=== PATIENT | female | born 1960 | race Caucasian/White ===

== ENCOUNTER 2017-04-14 12:46 | Inpatient (IN) | payer OTHER ==
[~2017-04-14] VITALS: Ht 167.6 cm; Wt 84.2 kg
[~2017-04-14 12:46] MED LIST: BUTA1CAP57 PO; CARI250T PO; DICY20TA29 PO; ELET40TA PO; LANS30CA60 PO; METF850T2 PO; SIMV40TA PO
[2017-04-14] MEDS ORDERED: MECLIZINE CHEWABLE 25 MG TAB ONE ×2 (13:17→19:29)
[2017-04-14 13:29] LABS: BASOPHILS # (AUTO) 0.01 x10^3/uL (0-0.1); BASOPHILS % (AUTO) 0 % (0-1); EOSINOPHILS % (AUTO) 1 % (1-7); LYMPHOCYTES # (AUTO) 1.04 x10^3/uL (1-3.4); LYMPHOCYTES % (AUTO) 7 % (22-44); MD NO; MEAN CORPUSCULAR HEMOGLOBIN 29.5 pg (27.0-34.8); MEAN CORPUSCULAR HGB CONC 33.3 g/dL (32.4-35.8); MEAN CORPUSCULAR VOLUME 88.6 fL (80-100); MEAN PLATELET VOLUME 7.7 fL (7.4-10.4); MONOCYTES # (AUTO) 0.86 x10^3/uL (0.2-0.8); MONOCYTES % (AUTO) 6 % (2-9); NEUTROPHILS # (AUTO) 13.15 x10^3/uL (1.8-6.8); NEUTROPHILS % (AUTO) 87 % (42-75); PLATELET COUNT 319 x10^3/uL (130-400); RED BLOOD COUNT 4.96 x10^6/uL (3.82-5.3); RED CELL DISTRIBUTION WIDTH 13.3 % (9.6-15.2)
[2017-04-14] MEDS ORDERED: MECLIZINE CHEWABLE 25 MG TAB PO ONE (13:30)
[2017-04-14 13:38] LABS: ALBUMIN 4.1 g/dL (3.4-5.0); ANION GAP 7 mmol/L (5-15); CALCIUM 9.1 mg/dL (8.5-10.1); CHLORIDE 106 mmol/L (98-107); CREATININE 0.98 mg/dL (0.55-1.02)
[2017-04-14 13:42] LABS: TROPONIN I < 0.015 ng/mL (0.000-0.045)
[2017-04-14 14:34] LABS: MICROSCOPIC INDICATED
[2017-04-14 14:46] LABS: CULTURE INDICATED? NO
[2017-04-14] MEDS ORDERED: PROMETHAZINE 25 MG/ML, 1ML IM ONE (15:30)
[2017-04-14] MEDS ORDERED: PROMETHAZINE 25 MG/ML, 1ML ONE (15:30)
[2017-04-14] MEDS ORDERED: ONDANSETRON 2MG/ML, 2ML ONE (16:30)
[2017-04-14] MEDS ORDERED: SODIUM CHLORIDE FLUSH 10ML SYR IVF ONE (17:00)
[2017-04-14] MEDS ORDERED: ONDANSETRON 2MG/ML, 2ML IVPush ONE (17:00)
[2017-04-14] MEDS ORDERED: SODIUM CHLORIDE 0.9% 1,000ML IVBOLUS ONE ×2 (17:00→20:00)
[2017-04-14] MEDS ORDERED: PANT20TA2 PO (17:14)
[2017-04-14] MEDS ORDERED: IRON PO (17:14)
[2017-04-14] MEDS ORDERED: TRAM50TA2 PO (17:15)
[2017-04-14] MEDS ORDERED: SODIUM CHLORIDE FLUSH 10ML SYR IVF PRN (17:30)
[2017-04-14] MEDS ORDERED: PROMETHAZINE 25 MG/ML, 1ML IM PRN (18:30)
[2017-04-14] MEDS ORDERED: DOCUSATE 100 MG CAPSULE PO PRN (18:30)
[2017-04-14] MEDS ORDERED: MECLIZINE CHEWABLE 25 MG TAB PO SCH (18:30)
[2017-04-14] MEDS ORDERED: ENOXAPARIN 40 MG/0.4 ML ONE (19:30)
[2017-04-14] MEDS: ENOXAPARIN 40 MG/0.4 ML SQ SCH (19:33)
[2017-04-14] MEDS: MECLIZINE CHEWABLE 25 MG TAB PO SCH (22:01)
[2017-04-14] MEDS: SIMVASTATIN 40 MG TABLET PO SCH (22:01)
[2017-04-14] MEDS: SODIUM CHLORIDE 0.9% 1,000 ML IV SCH (22:02)
[2017-04-14] MEDS: INSULIN ASPART 100 UNITS/ML, PEN SQ-INSULIN SCH (22:02)
[2017-04-14] MEDS: ACETAMINOPHEN 325 MG TABLET PO PRN (22:08)
[2017-04-14 22:17] VITALS: BP 118/75
[2017-04-15 02:58] VITALS: BP 108/72
[2017-04-15 05:17] LABS: BASOPHILS # (AUTO) 0.03 x10^3/uL (0-0.1); BASOPHILS % (AUTO) 0 % (0-1); EOSINOPHILS # (AUTO) 0.01 x10^3/uL (0-0.4); EOSINOPHILS % (AUTO) 0 % (1-7); LYMPHOCYTES # (AUTO) 0.74 x10^3/uL (1-3.4); LYMPHOCYTES % (AUTO) 12 % (22-44); MD NO; MEAN CORPUSCULAR HEMOGLOBIN 29.3 pg (27.0-34.8); MEAN CORPUSCULAR HGB CONC 33.2 g/dL (32.4-35.8); MEAN CORPUSCULAR VOLUME 88.3 fL (80-100); MEAN PLATELET VOLUME 7.5 fL (7.4-10.4); MONOCYTES # (AUTO) 0.32 x10^3/uL (0.2-0.8); MONOCYTES % (AUTO) 5 % (2-9); NEUTROPHILS # (AUTO) 5.15 x10^3/uL (1.8-6.8); NEUTROPHILS % (AUTO) 82 % (42-75); PLATELET COUNT 264 x10^3/uL (130-400); RED CELL DISTRIBUTION WIDTH 13.3 % (9.6-15.2)
[2017-04-15] MEDS: SODIUM CHLORIDE 0.9% 1,000 ML IV SCH ×2 (05:22→14:19)
[2017-04-15] MEDS: INSULIN ASPART 100 UNITS/ML, PEN SQ-INSULIN SCH ×4 (07:00→20:55)
[2017-04-15 07:38] VITALS: BP 112/78
[2017-04-15] MEDS: MECLIZINE CHEWABLE 25 MG TAB PO SCH ×3 (09:55→20:48)
[2017-04-15] MEDS: DICYCLOMINE 20 MG TABLET PO SCH (09:55)
[2017-04-15] MEDS: PANTOPRAZOLE 20MG TABLET PO SCH (09:55)
[2017-04-15] MEDS: FERROUS SULFATE 325 MG TABLET PO SCH (09:55)
[2017-04-15 13:16] VITALS: BP 106/71
[2017-04-15] MEDS ORDERED: LORazepam 2 MG/ML, 1ML IVPush ONE (16:30)
[2017-04-15] MEDS ORDERED: GADOBUTROL 7.5 MMOL/7.5 ML PFS ONE (16:58)
[2017-04-15 17:03] LABS: RAPID INFLUENZA A Negative (Negative); RAPID INFLUENZA B Negative (Negative)
[2017-04-15 17:33] LABS: HEMOGLOBIN A1C 6.2 % (4.2-6.3)
[2017-04-15] MEDS: ENOXAPARIN 40 MG/0.4 ML SQ SCH (17:47)
[2017-04-15] MEDS: ASPIRIN 325 MG TABLET PO SCH (17:47)
[2017-04-15 20:36] VITALS: BP 94/61
[2017-04-15] MEDS: SIMVASTATIN 40 MG TABLET PO SCH (20:48)
[2017-04-16] MEDS: SODIUM CHLORIDE 0.9% 1,000 ML IV SCH ×2 (00:34→07:48)
[2017-04-16 01:42] VITALS: BP 107/68
[2017-04-16 05:19] LABS: ALBUMIN 2.9 g/dL (3.4-5.0); ANION GAP 4 mmol/L (5-15); CALCIUM 8.3 mg/dL (8.5-10.1); CHLORIDE 111 mmol/L (98-107)
[2017-04-16 05:24] LABS: ALANINE AMINOTRANSFERASE 24 U/L (12-78); ALKALINE PHOSPHATASE 75 U/L (45-117); BILIRUBIN,TOTAL 0.4 mg/dL (0.2-1.0); CHOL/HDL RATIO 4.4; CHOLESTEROL, TOTAL 167 mg/dL (140-239); CREATININE 0.72 mg/dL (0.55-1.02); HDL CHOL % 23 % (28-40); HDL CHOLESTEROL (DIRECT) 38 mg/dL (40-60); LDL CHOLESTEROL,CALCULATED 97 mg/dL (54-169); LDL/HDL RATIO 2.6 (0.5-3.0); TOTAL PROTEIN 5.8 g/dL (6.4-8.2); TRIGLYCERIDES 161 mg/dL (50-200); VLDL CHOLESTEROL 32 mg/dL (0-25)
[2017-04-16 05:53] LABS: BASOPHILS # (AUTO) 0.02 x10^3/uL (0-0.1); BASOPHILS % (AUTO) 0 % (0-1); EOSINOPHILS # (AUTO) 0.05 x10^3/uL (0-0.4); EOSINOPHILS % (AUTO) 1 % (1-7); LYMPHOCYTES # (AUTO) 1.27 x10^3/uL (1-3.4); LYMPHOCYTES % (AUTO) 21 % (22-44); MD NO; MEAN CORPUSCULAR HEMOGLOBIN 29.6 pg (27.0-34.8); MEAN CORPUSCULAR HGB CONC 33.6 g/dL (32.4-35.8); MEAN CORPUSCULAR VOLUME 87.9 fL (80-100); MEAN PLATELET VOLUME 7.5 fL (7.4-10.4); MONOCYTES # (AUTO) 0.52 x10^3/uL (0.2-0.8); MONOCYTES % (AUTO) 9 % (2-9); NEUTROPHILS # (AUTO) 4.08 x10^3/uL (1.8-6.8); NEUTROPHILS % (AUTO) 69 % (42-75); PLATELET COUNT 223 x10^3/uL (130-400); RED BLOOD COUNT 4.08 x10^6/uL (3.82-5.3); RED CELL DISTRIBUTION WIDTH 13.9 % (9.6-15.2)
[2017-04-16] MEDS: INSULIN ASPART 100 UNITS/ML, PEN SQ-INSULIN SCH ×4 (07:00→20:19)
[2017-04-16] MEDS: PANTOPRAZOLE 20MG TABLET PO SCH (07:49)
[2017-04-16] MEDS: FERROUS SULFATE 325 MG TABLET PO SCH (07:49)
[2017-04-16] MEDS: DICYCLOMINE 20 MG TABLET PO SCH (07:49)
[2017-04-16] MEDS: MECLIZINE CHEWABLE 25 MG TAB PO SCH ×3 (07:49→20:18)
[2017-04-16] MEDS: ASPIRIN 325 MG TABLET PO SCH (07:49)
[2017-04-16 07:59] VITALS: BP 123/71
[2017-04-16] MEDS: ACETAMINOPHEN 325 MG TABLET PO PRN (08:04)
[2017-04-16 09:55] LABS: CLOSTRIDIUM DIFFICILE ANTIGEN NEGATIVE; CLOSTRIDIUM DIFFICILE TOXIN NEGATIVE (Negative)
[2017-04-16 13:47] VITALS: BP 110/74
[2017-04-16] MEDS: ENOXAPARIN 40 MG/0.4 ML SQ SCH (17:24)
[2017-04-16 20:03] VITALS: BP_SYST 109; BP_SYST 113; BP_SYST 97; BP_DIAS 67; BP_DIAS 73; BP_DIAS 75
[2017-04-16] MEDS: SIMVASTATIN 40 MG TABLET PO SCH (20:17)
[2017-04-17] VITALS (7 sets, daily range): BP systolic 103–118; BP diastolic 69–82
[2017-04-17 05:52] LABS: ANION GAP 7 mmol/L (5-15); CALCIUM 8.6 mg/dL (8.5-10.1); CHLORIDE 110 mmol/L (98-107); CREATININE 0.67 mg/dL (0.55-1.02)
[2017-04-17] MEDS: INSULIN ASPART 100 UNITS/ML, PEN SQ-INSULIN SCH ×2 (07:00→11:00)
[2017-04-17] MEDS: DICYCLOMINE 20 MG TABLET PO SCH (09:13)
[2017-04-17] MEDS: PANTOPRAZOLE 20MG TABLET PO SCH (09:13)
[2017-04-17] MEDS: FERROUS SULFATE 325 MG TABLET PO SCH (09:13)
[2017-04-17] MEDS: ASPIRIN 325 MG TABLET PO SCH (09:13)
[2017-04-17] MEDS: MECLIZINE CHEWABLE 25 MG TAB PO SCH (09:13)
[2017-04-17] MEDS ORDERED: POTASSIUM CHLORIDE 20 MEQ TAB.ER.PRT PO ONE (09:30)
[2017-04-17] MEDS ORDERED: ASPI325T17 PO (10:37)
[2017-04-17] MEDS ORDERED: MECL-85 PO (10:37)
== END 2017-04-17 16:10 | disposition home or self-care (01) | DRG 149 ==
LOC: ED 15:41 → EDIP 17:16 → 4WST 20:21
PROVIDERS: ADMIT Family Medicine; ATTEND Family Medicine
DX: H81.10 Benign paroxysmal vertigo, unspecified ear (principal); E44.0 Moderate protein-calorie malnutrition; D72.829 Elevated white blood cell count, unspecified; E11.9 Type 2 diabetes mellitus without complications; E78.5 Hyperlipidemia, unspecified; B34.9 Viral infection, unspecified; E86.0 Dehydration; G43.909 Migraine, unspecified, not intractable, without status migrainosus; K52.9 Noninfective gastroenteritis and colitis, unspecified; R00.0 Tachycardia, unspecified; Z90.49 Acquired absence of other specified parts of digestive tract; Z68.30 Body mass index [BMI] 30.0-30.9, adult; Z82.49 Family history of ischemic heart disease and other diseases of the circulatory system; Z83.3 Family history of diabetes mellitus; Z88.1 Allergy status to other antibiotic agents; Z88.8 Allergy status to other drugs, medicaments and biological substances
CPT/HCPCS: 36415; 70450; 70553; 71046; 80048; 80053; 80061; 81001; 82040; 82962; 83036; 83605; 83735; 84100; 84145; 84443; 84484; 85025; 87040; 87324; 87400; 93005; 93306; 93880; 96361; 96372; 96374; A9585; J1650; J2405; J2550; J2060; J7030

== ENCOUNTER → 2018-05-13 | Outpatient (CLI) | payer OTHER ==
[~2018-05-13] MED LIST changes: +ASPI325T17 PO; +IRON PO; +MECL-85 PO; +METF850T10 PO; -METF850T2 PO; +PANT20TA2 PO; +TRAM50TA2 PO
== END | disposition home or self-care (01) ==
LOC: CFH 08:03
PROVIDERS: ATTEND Obstetrics & Gynecology
DX: Z12.31 Encounter for screening mammogram for malignant neoplasm of breast (principal)
CPT/HCPCS: 77063; 77067